=== PATIENT | female | born 1970 | race Caucasian/White ===

== ENCOUNTER → 2024-01-13 07:17 | Outpatient (REF) | payer BC, SELFPAY | LOC: EMG 07:17 | PROVIDERS: ATTENDING PHYSICIAN Student in an Organized Health Care Education/Training Program; FAMILY PHYSICIAN Family Medicine | DX: R20.0 Anesthesia of skin (principal) | CPT/HCPCS: 95886; 95911 ==

== ENCOUNTER → 2024-08-27 12:47 | Outpatient (REF) | payer BC, SELFPAY | LOC: EMG 12:47 | PROVIDERS: ATTENDING PHYSICIAN Student in an Organized Health Care Education/Training Program; FAMILY PHYSICIAN Family Medicine; REFERRING PHYSICIAN Psychiatry & Neurology Neurology | DX: R20.0 Anesthesia of skin (principal) | CPT/HCPCS: 95886; 95911 ==